=== PATIENT | female | born 1995 | race Caucasian/White ===

== ENCOUNTER 2025-08-22 16:17 | Emergency (ER) | payer SELFPAY ==
--- OUTSIDE RECORDS SUMMARY | 2025-08-22 16:24 | XMS_ITS | Clinical Summary ---
Author Organization [employer] Address [facility] [id number] [address] [place] [address] Care Team Providers Care Ethylbenzene Oxidizer Name Role Phone No Pcp, No Pcp Primary Care Provider Unavailabl e Allergies Active Allergy Reactions Criticality Noted Date Comments Amoxicillin 05/02/2023 Peanut Anaphylaxis High 06/20/2024 Pt states that it feels like her throat swells up and its hard to breathe but an allergy pill helps. Tree Nut 06/20/2024 Medications prenat.vits,shadia ,elt-evyz-jxejm tablet Take by mouth. Active acetaminophen (TYLENOL EXTRA STRENGTH) 500 mg tablet Take 2 tablets (1,000 mg total) by mouth every 8 (eight) hours. 60 tablet 1 10/23/2024 Active ibuprofen (MOTRIN) 800 mg tablet Take 1 tablet (800 mg total) by mouth every 8 (eight) hours. 30 tablet 1 10/23/2024 Active docusate sodium (COLACE) 100 mg capsule Take 1 capsule (100 mg total) by mouth in the morning and 1 capsule (100 mg total) before bedtime. 10 capsule 1 10/23/2024 Active Active Problems Problem Noted Date Diagnosed Date care following delivery 10/02 Delivery by section of full-term infant 10/21/2024 Poor dentition 10/21/2024 Resolved Problems Problem Noted Date Diagnosed Date Resolved Date Bradycardia 10/23/2024 10/23/2024 Uterine contractions during 10/22/2024 10/22/2024 PROM with onset of labor wit hin 24 hours of rupture 10/21/2024 10/22/2024 36 weeks gestation of 10/09/2024 10/21/2024 Threatened labor, antepartum 10/09/2024 10/21/2024 Overview (10/09/2024): corticosteroids given. ckm 10/08/2024: 10/09/2024: Candidiasis of vagina during 10/09/2024 10/21/2024 Overview (10/09/2024): Positive candidiasis per 10/08/2024 vaginitis culture. 10/09/2024: Treated with Diflucan 150 mg p.o. x1 while in L&D triage. [facility] Social History Tobacco Use Types Packs/Day Years Used Date Smoking Tobacco: Former Cigarettes Smokeless Tobacco: Current Chew Tobacco Cessation:Ready to Q uit: Not Asked; Counseling Given: Not Answered Alcohol Use Standard Drinks/Week Comments Not Currently 0 (1 standard drink = 0.6 oz pur e alcohol) social [facility] Utilities Answer Date Recorded In the past 12 months has [employer], [employer], oil, or water [employer] threatened to shut off services in your home? No 10/21/2024 Social Connection and Isolation Panel [NHANES] A nswer Date Recorded In a typical week, how many times do you talk on the phone with family, friends, or neighbors? Three times a week 10/20/2024 How often do you get togethe r with friends or relatives? Three times a week 10/20/2024 How often do you attend chur ch or hindu services? Never 10/20/2024 Do you belong to any clubs o r organizations such as rastafarian groups, unions, fraternal or athletic groups, or school groups? No 10/20/2024 How often do you attend meet ings of the clubs or organizations you belong to? Never 10/20/2024 Are you , , di vorced, , never , or living with a partner? 10/20/2024 Overall Financial Resource Strain (CARDIA) Answe r Date Recorded How hard is it for you to pa y for the very basics like food, housing, medical care, and heating? Not very hard 10/21/2024 PHQ-2 Answer Date Recorded Total Score 0 10/21/2024 Exercise Vital Sign Answer Date Recorde d On average, how many days pe r week do you engage in moderate to strenuous exercise (like a brisk walk)? 3 days 10/20/2024 On average, how many minutes do you engage in exercise at this level? 30 min 10/20/2024 PRAPARE - Transportation Answer Date Re corded In the past 12 months, has l ack of transportation kept you from medical appointments or from getting medications? No 10/02 In the past 12 months, has l ack of transportation kept you from meetings, work, or from getting things needed for daily living? No 10/21/2024 Housing Instability Answer Date Recorde d Are you worried or concerned that in the next two months you may not have stable housing that you own, rent or stay in as a part of a household? No 10/21/2024 Employment Answer Date Recorded Do you need help finding a [employer] center and/or a training program? No 10/20/2024 Hunger Screening Answer Date Recorded Within the past 12 months we worried whether our food would run out before we got money to buy more. Never True 04/16/2025 Within the past 12 months th e food we bought just didn't last and we didn't have money to get more. Never True 04/16/2025 Purpose - Life Answer Date Recorded I have a purpose and direction in my life. Agree 10/20/2024 Comments No Sex and Gender Information Value Date Recorded Sex Assigned at Not on file Legal Sex Female 6:17 PM EDT Gender Identity Not on file Sexual Orientation Not on file Last Filed Vital Signs Vital Sign Reading Time Taken Comments Blood Pressure 116/69 04/16/2025 7:36 AM EDT Pulse 54 04/16/2025 7:36 AM EDT Temperature 36.4 C (97.6 F) 04/16/2025 7:36 AM EDT Respiratory Rate 16 04/16/2025 7:36 AM EDT Oxygen Saturation 100% 04/16/2025 7:36 AM EDT Inhaled Oxygen Concentration - - Weight 68 kg (150 lb) 04/16/2025 7:38 AM EDT Height 160 cm (5' 3 ) 04/16/2025 7:38 AM EDT Body Mass Index 26.57 04/16/2025 7:38 AM EDT Plan of Treatment Health Maintenance Due Date Last Done Comments Tobacco Counseling 1996 Adult BMI Follow Up Plan 2014 Pap Smear 2017 Influenza Vaccine 08/01/2025 Depression Screening 10/21/2025 10/21/2024 Tobacco Screening 11/14/2025 11/14/2024 Adult BMI Screening 04/16/2026 04/16/2025 DTaP,Tdap and Td Vaccines (8 - Td or Tdap) 09/19/2028 09/19/2018, 07/05/2010, 04/17/2001, Additional history exists Medical Devices Not on file Insurance [employer] Advance Directives * Full Code (Latest Code Status on File) Date Activated Date Inactivated Comments 10/21/2024 12:38 PM 10/23/2024 8:21 PM Care Teams Ethylbenzene Oxidizer Relationship Specialty Start Date End Date No Pcp, No Pcp VIRAJ Shipman [id number] PCP - General Family Medicine 04/25/24
--- OUTSIDE RECORDS SUMMARY | 2025-08-22 16:24 | XMS_ITS | Encounter Summary ---
Author Organization [facility] tem Address [facility] – [place] [id number] [address] [place] [address] Care Team Providers Care Staff Climate Scientist Name Role Phone No Pcp, No Pcp Primary Care Provider Unavailabl e Encounter Details Date Type Department Care Team (Late st Contact Info) Description 10/09/2024 Orders Only [facility] [address] [place] [address] Farrah Naidu RN Social History Tobacco Use Types Packs/Day Years Used Date Smoking Tobacco: Every Day Cigarettes Smokeless Tobacco: Current Chew Alcohol Use Standard Drinks/Week Comments Not Currently 0 (1 standard drink = 0.6 oz pur e alcohol) social [facility] Utilities Answer Date Recorded In the past 12 months has e electric, gas, oil, or water company threatened to shut off services in your home? No 10/11/2024 Overall Financial Resource Strain (CARDIA) Answe r Date Recorded How hard is it for you to pa y for the very basics like food, housing, medical care, and heating? Not very hard 10/11/2024 PRAPARE - Transportation Answer Date Re corded In the past 12 months, has l ack of transportation kept you from medical appointments or from getting medications? No 10/01 In the past 12 months, has l ack of transportation kept you from meetings, work, or from getting things needed for daily living? No 10/11/2024 Housing Instability Answer Date Recorde d Are you worried or concerned that in the next two months you may not have stable housing that you own, rent or stay in as a part of a household? No 10/11/2024 Hunger Screening Answer Date Recorded Within the past 12 months we worried whether our food would run out before we got money to buy more. Never True 10/11/2024 Within the past 12 months th e food we bought just didn't last and we didn't have money to get more. Never True 10/11/2024 Comments Yes Sex and Gender Information Value Date Recorded Sex Assigned at Not on file Legal Sex Female 6:17 PM EDT Gender Identity Not on file Sexual Orientation Not on file documented as of this encounter Plan of Treatment Not on file documented as of this encounter Visit Diagnoses Not on filedocumented in this encounter Care Teams Staff Climate Scientist Relationship Specialty Start Date End Date No Pcp, [place] [address] PCP - General Family Medicine 04/25/24 documented as of this encounter
[2025-08-22 16:52] VITALS: BP 111/65; PULSE 54; TEMP 36.9; O2SAT 99; BMI 27.5
== END 2025-08-22 20:57 | disposition left against medical advice (07) ==
LOC: ER 16:22
PROVIDERS: Emergency Provider Emergency Medicine
DX: Z53.21 Procedure and treatment not carried out due to patient leaving prior to being seen by health care provider (principal)
CPT/HCPCS: 99281